=== PATIENT | female | born 1965 | race Caucasian/White ===

== ENCOUNTER 2025-04-13 06:28 | Day surgery (SDC) | payer OTHER, SELFPAY ==
[2025-04-12 14:30] VITALS: BMI 28.1
[2025-04-13 12:39] VITALS: BP 143/83; BMI 28.1
[2025-04-13] MEDS: NORMOSOL-R/PLASMALYTE-A 1000 IV (12:50)
[2025-04-13] MEDS: TYLENOL 1000 MG PO (12:52)
[2025-04-13 16:45] VITALS: BP 102/64; BP 118/69
[2025-04-13 17:00] VITALS: BP 128/71
[2025-04-13 17:10] VITALS: BP 140/78
[2025-04-13 17:25] VITALS: BP 145/78
[2025-04-13 17:40] VITALS: BP 141/80
== END 2025-04-13 18:00 | disposition home or self-care (01) ==
LOC: SDS 06:28
PROVIDERS: ATTENDING PHYSICIAN Surgery; FAMILY PHYSICIAN Family Medicine
DX: K60.1 Chronic anal fissure (principal); K62.89 Other specified diseases of anus and rectum
CPT/HCPCS: 46200; 36415; 88304; 93005